=== PATIENT | female | born 1960 | race Caucasian/White ===

== ENCOUNTER 2022-11-02 13:38 | Outpatient (OUT) | payer OTHER, SELFPAY ==
--- NOTE | 2022-11-02 14:15 | MM_ITS ---
Patient: PATRICK PIEDRA Exam Date: 11/02/2022 : 1960 Gender:F Ordering : DR ARNALDO GONZALES Admission #: [id number] Family : Non-Staff Physician Order #: [id number] CLICK HERE TO VIEW EXAM RADIOLOGY REPORT PROCEDURE: MM TOMOSYNTHESIS SCREENING BI COMPARISON: MG MAMM SCREEN 3D PEDRO CAD, 10/15/2021. MG MAMM PEDRO DIAG W CAD DIG, 09/28/2020. MG MAMM SCREEN 3D PEDRO CAD, 09/09/2019. MG MAMM SCREEN 3D PEDRO CAD, 11/17/2017. INDICATIONS: Screening Calculator Name NCI Breast Cancer Risk Assessment Tool 5 Year Breast Cancer Risk 1.60% Lifetime Breast Cancer Risk 8.10% Personal Breast Cancer No Personal Ovarian Cancer No Treatments None Family Cancers Grandfather-maternal with lung cancer at age ~65. LOCATION: [facility] BREAST COMPOSITION: Scattered areas fibroglandular density. FINDINGS: DIAGNOSTIC CATEGORY 1--NEGATIVE. RIGHT BREAST: No significant suspicious finding. No significant change has occurred. LEFT BREAST: No significant suspicious finding. No significant change has occurred. RECOMMENDATIONS: ROUTINE MAMMOGRAM AND CLINICAL EVALUATION IN 12 MONTHS. PLEASE NOTE: A NORMAL MAMMOGRAM DOES NOT EXCLUDE THE POSSIBILITY OF BREAST CANCER. A CLINICALLY SUSPICIOUS PALPABLE LUMP SHOULD BE BIOPSIED. Dictated by: Rock Christopher M.D. on 11/03/2022 at 15:48 Approved by: Rock Christopher M.D. on 11/03/2022 at 15:51
== END 2022-11-02 13:39 | disposition home or self-care (01) ==
LOC: MAMMO 13:38
PROVIDERS: Family Provider Internal Medicine; Visit Provider Obstetrics & Gynecology
DX: Z12.31 Encounter for screening mammogram for malignant neoplasm of breast (principal); Z80.1 Family history of malignant neoplasm of trachea, bronchus and lung
CPT/HCPCS: 77063; 77067

== ENCOUNTER 2025-02-11 12:46 | Emergency (ER) | payer OTHER, SELFPAY ==
--- OUTSIDE RECORDS SUMMARY | 2025-01-31 06:30 | XMS_ITS | Encounter Summary ---
Author Organization [facility] Address [address] [place] [address] Care Team Providers Care Construction Coordinator Name Role Phone Chance Melton DO Primary Care Provider Neville Hyman DO Unavailable [phone] Adam Mahoney MD Unavailable Lan Dixon MD Unavailable Mauricio Chun MD Unavailable Encounter Details DateTypeDepartmentCare Team (Latest Contact Info)Xursnqwodzw32/31/2025 7:30 AM EDTAncillary Procedure [facility] SW [facility] [address] [place] [address] Renal stone Social History Tobacco UseTypesPacks/DayYears UsedDateSmoking Tobacco: Every DayCigarettes0.5 36.9Started: 04/03/1988Smokeless Tobacco: NeverAlcohol UseStandard Drinks/Week CommentsYes0 (1 standard drink = 0.6 oz pure alcohol)caffeine: coffee 3-4 cups a dayAUDIT-CAnswerDate RecordedQ1: How often do you have a drink containing alcohol?Never09/25/2024Q2: How many drinks containing alcohol do you have on a typical day when you are drinking?Patient does not drink09/25/2024Q3: How often do you have six or more drinks on one occasion?Never09/25/2024PHQ-2AnswerDate RecordedPatient Health Questionnaire-2 Bvhyi858CommentsNoSex and Gender InformationValueDate RecordedSex Assigned at BirthNot on fileLegal Sex Dmtugp8406/15/2022 7:09 PM EDTGender IdentityNot on fileSexual OrientationNot on fileOccupationIndustryJob Start DateJob End DatedisabledNot on fileNot on file Not on filedocumented as of this encounter Plan of Treatment DateTypeDepartmentCare Team (Latest Contact Info)Zqboykrebgl05/20/2025 9:30 AM ESTOffice Visit [facility] [address] [place] [phone] Caro Elias NP [address] [place] [address] 09/30/2025 11:00 AM EDTOffice Visit ELVIRA HALEY [address] [place] [phone] Neville Hyman DO [address] [place] [address] documented as of this encounter Procedures Procedure NamePriorityDate/TimeAssociated DiagnosisCommentsXR ABDOMEN 1 VIEW Zxjjuxj9701/31/2025 7:25 AM EDT Renal stone documented in this encounter Results * XR abdomen 1 view (01/31/2025 7:25 AM EDT)Anatomical RegionLateralityModality AbdomenRadiographic ImagingSpecimen (Source)Anatomical Location / Laterality Collection Method / VolumeCollection TimeReceived Time02/03/2025 12:43 PM EST Impressions 02/03/2025 2:26 PM EST Left ureteral stent, proximal ureteral stones. TRANSCRIBED BY: ? ELECTRONICALLY SIGNED BY: Sergei Macedo MD Narrative 02/03/2025 2:26 PM EST FINDINGS: Comparison made with prior examination of January 23, 2025. ?? No change, persistent left ureteral stent, proximal ureteral 3-5 stones. Obscured renal shadows. ?? Procedure Note Sergei Macedo MD - 02/03/2025 FINDINGS: Comparison made with prior examination of January 23, 2025. No change, persistent left ureteral stent, proximal ureteral 3-5 stones.Obscured renal shadows. IMPRESSION: Left ureteral stent, proximal ureteral stones. TRANSCRIBED BY: ELECTRONICALLY SIGNED BY: Sergei Macedo MD Authorizing ProviderResult TypeResult StatusJamaria d Rooney MDIMAugustine XR PROCEDURES Final Result documented in this encounter Visit Diagnoses Diagnosis Renal stone Calculus of kidney documented in this encounter Additional Health Concerns AssessmentNoted TimePHQ-9 Depression Total Score: 111 8:45 AM EDT documented as of this encounter Care Teams Team MemberRelationshipSpecialtyStart DateEnd Date Chance Melton DO [address] [place] [address] PCP - GeneralInternal Medicine10/19/22 Neville Hyman DO [address] [place] [address] Referring PhysicianObstetrics and Tewlfqwayi79/7/25 Adam Mahoney MD [address] [address] Referring VvavghjtcNmqaske13/22/25 Lan Dixon MD Referring DhrginuzdYxkchfg28/22/25 Mauricio Chun MD [address] [place] [address] Referring LsygpgspvLevdjerteziszoal88/22/25documented as of this encounter
[2025-02-11 12:52] VITALS: BP 163/88; PULSE 89; TEMP 36.8; O2SAT 98
--- NOTE | 2025-02-11 13:54 | CT_ITS ---
[address] [address] Patient Name: PATRICK PIEDRA MRN: [id number] date: 1960 Sex: F Assigned Patient Location: ER Current Patient Location: ER Accession/Order Number: [id number] Exam Date: 02/11/2025 14:04 Report Date: 02/11/2025 14:34 At the request of: HAL RUFFIN Procedure: CT abdomen pelvis wo con CT abdomen pelvis wo con 02/11/2025 2:13 PM SIGNS AND SYMPTOMS: Left sided kidney stone, uncontrolled pain TECHNIQUE: Multidetector ct axial images of the abdomen and pelvis were obtained without IV contrast. Multiplanar reformats were performed and reviewed to further define anatomy and possible pathology. CT was performed with one or more of the following dose reduction techniques: Automated exposure control, adjustment of the mA and/or kV according to patient size, or use of iterative reconstruction technique. COMPARISON: None. FINDINGS: Lower Chest: Mild airspace opacities are noted in the lung bases possibly representing atelectasis. ABDOMEN: Liver: The liver is hypoattenuating suggesting hepatic steatosis. Bile Ducts: Normal caliber. Gallbladder: Previously removed Pancreas: Within normal limits. Spleen: Within normal limits. Adrenals: Within normal limits. Kidneys: There is left-sided hydronephrosis. Presumed hemorrhagic cysts are noted along the left renal cortex measuring up to 1.5 cm in greatest dimension. The proximal aspect of a left ureteral stent appears to traverse the left renal pelvis with the tip extending into the perirenal fat. There is left-sided hydronephrosis. Pelvis: Reproductive Organs: No pelvic masses. Ureters: A left ureteral stent is present. Multiple tiny radiodense structures are noted along the left ureter adjacent to the stent suggesting ureteral stones. There is fat stranding surrounding the left ureter. Bladder: The distal aspect of the left ureteral stent is within the bladder lumen. Bowel: There is evidence of previous partial colectomy with surgical anastomosis at the rectosigmoid junction. Nonobstructing loops of small bowel project into a ventral wall hernia. Mesenteric Lymph Nodes: No enlarged mesenteric lymph nodes. Peritoneum: No ascites or free air, no fluid collection. Vessels: Atherosclerotic changes are noted in the abdominal aorta and its branches. Retroperitoneum: Within normal limits. Abdominal Wall: There is a ventral wall hernia containing intraperitoneal fat. Umbilical region along with nonobstructed loops of small bowel. Bones: Degenerative changes are noted in the sacroiliac joints and lumbar spine. CT/CT abdomen pelvis wo con IMPRESSION: Left-sided hydronephrosis is noted. There is a left ureteral stent. The proximal aspect of the stent appears to extend through the renal pelvis into the perirenal fat. Radiodense structures are noted along the left ureter adjacent to the ureteral stent suggesting ureteral stones. There is a ventral wall hernia containing intraperitoneal fat and nonobstructed loops of small bowel in the periumbilical region. Hepatic steatosis. Impression dictated by: Bj Mcclain M.D. 02/11/2025 2:34 PM Dictation Location: [place] [address] Electronically authenticated by: [id number] Y Date: 02/11/2025 14:34
--- OUTSIDE RECORDS SUMMARY | 2025-02-11 13:56 | XMS_ITS | Encounter Summary ---
Author Organization [facility] Address [address] [facility] [place] [address] Care Team Providers Care Editor Department Name Role Phone VenancioChance saeed Oriana FRANCO Primary Care Provider Neville Hyman DO Unavailable [phone] Adam Mahoney MD Unavailable [phone] Lan Dixon MD Unavailable [phone] Mauricio Chun MD Unavailable [phone] Encounter Details DateTypeDepartmentCare Team (Latest Contact Info)Ndntxibgaju44/29/2025ommunity Orders [facility]P SW [facility]RO [address] [place] [address] Kristin Rooney MD [address] [id number] Renal stone (Primary Dx) Social History Tobacco UseTypesPacks/DayYears UsedDateSmoking Tobacco: Every [...] drinks on one occasion?Never09/25/2024PHQ-2AnswerDate RecordedPatient Health Questionnaire-2 Ojqfs535CommentsNoSex and Gender InformationValueDate RecordedSex Assigned at BirthNot on fileLegal Sex Iljbhm0306/15/2022 7:09 PM EDTGender IdentityNot on fileSexual OrientationNot on fileOccupationIndustryJob Start DateJob End DatedisabledNot on fileNot on file Not on filedocumented as of this encounter Plan of Treatment DateTypeDepartmentCare Team (Latest Contact Info)Ioeezceepay61/20/2025 9:30 AM ESTOffice Visit [facility] [address] [place] [phone] Caro Elias NP [address] [place] [address] 09/30/2025 11:00 AM EDTOffice Visit ELVIRA HALEY [address] [place] [phone] Neville Hyman DO [address] [place], [place] [phone] documented as of this encounter Results * XR abdomen 1 [...] BY: Sergei Macedo MD Authorizing ProviderResult TypeResult StatusKristin MARSH XR PROCEDURES Final Result documented in this encounter Visit Diagnoses Diagnosis Renal stone- Primary Calculus of kidney Renal stone Calculus of kidney documented in this encounter Additional Health Concerns AssessmentNoted TimePHQ-9 Depression Total Score: 111 8:45 AM EDT documented as of this encounter Care Teams Team MemberRelationshipSpecialtyStart DateEnd Date Chance Melton DO [address] [place] [address] PCP - GeneralInternal Medicine10/19/22 Neville Hyman DO [address] [place] [address] Referring PhysicianObstetrics and Nfdphfulzh04/7/25 Adam Mahoney MD [address] [address] Referring YfzecneafHamzakz26/22/25 Lan Dixon MD Referring QvrdezpiqCeueuax44/22/25 Mauricio Chun MD [address] [place] [address] Referring EzbigdaywRqmfmujjamvbwtte98/22/25documented as of this encounter
--- OUTSIDE RECORDS SUMMARY | 2025-02-11 13:56 | XMS_ITS | Clinical Summary ---
Author Organization [facility] Address [address], [address] [place] [address] Care Team Providers Care Premix Operator Concentrate Name Role Phone Chance Melton DO Primary Care Provider [phone] Allergies Active AllergyReactionsCriticalityNoted DateCommentsCyclobenzaprineItching,Rash High07/12/2017TizanidineItching,EmfhLni7401/19/2022 rash Medications MedicationSigDispense QuantityRefillsLast FilledStart DateEnd DateStatus triamterene-hydroCHLOROthiazide (MAXZIDE-25) 37.5-25 MG per tablet Take 1 tablet by mouth daily01/14/2023ctive estradiol (ESTRACE) 0.5 MG tablet Take 1 tablet by mouth in the morning and 1 tablet in the evening.01/02/2023 Active DULoxetine (CYMBALTA) 60 MG extended release capsule Take 1 capsule by mouth 2 times daily11/19/2018Active carvedilol (COREG) 25 MG tablet Take 1 tablet by mouth 2 times daily (with meals)Active Cholecalciferol (VITAMIN D3) 125 MCG (5000 UT) TABS Take by mouth dailyActive busPIRone (BUSPAR) 7.5 MG tablet 12/05/2023ctive ondansetron (ZOFRAN-ODT) 4 MG disintegrating tablet Take 1 tablet by mouth 3 times daily as needed for Nausea or Vomiting 21 tablet 02/16/2024ctive ondansetron (ZOFRAN) 4 MG tablet Take 1 tablet by mouth every 8 hours as needed for Nausea or Vomiting 30 tablet 03/22/2024ctive Active Problems ProblemNoted DateDiagnosed DateColostomy /11/2024olostomy vxkcuyuezesk90/06/2024Mild /25/2024Left upper quadrant abdominal bhhijxw2908/26/2023Ischemic drhngco9708/25/2023Intra-abdominal msvzlyz3608/24/2023S/P susjiogec66/19/7538Vqgnetedsvo52/19/2024Slow transit rzmmughxuske85/12/2024 Mmzaguchgzqoyx33/03/2024Hyperplastic colonic polyp03/08/20233383Vvjrftvy87/16/2023 Abdominal pain01/16/2023Hyperplastic polyp of kaukmfvno94/16/2023 Resolved Problems ProblemNoted DateDiagnosed DateResolved DateColon cancer ngofuhoas80/13/2024 12/14/2023nastomotic leak of cndenkbmv72 Family History Medical HistoryRelationNameCommentsHeart DiseaseFatherKidney DiseaseFatherHigh Blood PressureMotherColon CancerNeg HxRelationNameStatusCommentsFatherDeceased MotherAlive Social History Tobacco UseTypesPacks/DayYears UsedDateSmoking Tobacco: Every DayCigarettes0.530 Smokeless Tobacco: Never Tobacco Cessation:Ready to Q uit: Not Asked; Counseling Given: Not Answered Comments:Down to 3 a day sometimes Alcohol UseStandard Drinks/WeekCommentsYes0 (1 standard drink = 0.6 oz pure alcohol)sociallyAHC UtilitiesAnswerDate RecordedIn the past 12 months has the [employer], [employer], [employer], or water [employer] threatened to shut off services in your home?No02/12/2024UDIT-CAnswerDate RecordedQ1: How often do you have a drink containing alcohol?Monthly or less08/24/2023Q2: How many drinks containing alcohol do you have on a typical day when you are drinking?1 or Q3: How often do you have six or more drinks on one occasion?Never08/24/2023HQ-2 AnswerDate RecordedPHQ-9 Total Yixex418Hunger Vital SignAnswerDate RecordedWithin the past 12 months, you worried that your food would run out before you got the money to buymore.Never true02/12/2024Within the past 12 months, the food you bought just didn't last and you didn't have money to get more.Never true02/12/2024RAPARE - TransportationAnswerDate RecordedIn the past 12 months, has lack of transportation kept you from medical appointments or from getting medications?No02/12/2024In the past 12 months, has lack of transportation kept you from meetings, work, or from getting things needed for daily living?No02/12/2024Housing Stability Vital SignAnswerDate RecordedIn the last 12 months, was there a time when you were not able to pay the mortgage or rent on time?No08/24/2023In the last 12 months, how many places have you lived?1 08/24/2023In the last 12 months, was there a time when you did not have a steady place to sleep or slept in [place] (including now)?No08/24/2023Housing Stability Vital SignAnswerDate RecordedIn the last 12 months, was there a time when you were not able to pay the mortgage or rent on time?No02/12/2024In the past 12 months, how many times have you moved where you were living? At any time in the past 12 months, were you homeless or living in a penitentiary (including now)?No02/12/2024Food InsecurityAnswerDate RecordedWithin the past 12 months, you worried that your food would run out before you got the money to buy more.Within the past 12 months, the food you bought just didn't last and you didn't have money to get more.Interpersonal Safety Domain Source: IP Abuse ScreeningAnswerDate RecordedPhysical lqasfSqzpfe74/11/2024 Verbal ujbsvSeytot69/11/2024Emotional opqfqAdypnu45/11/2024Financial abuseDenies 02/12/2024Sexual udquvLddlht13/11/2024CommentsNoSex and Gender InformationValueDate RecordedSex Assigned at BirthNot on fileLegal SexFemale 05/15/2012 3:04 AM ESTGender IdentityNot on fileSexual OrientationNot on file Last Filed Vital Signs Vital SignReadingTime TakenCommentsBlood Zmiscoza618/5911 1:03 PM EST Meapq5374/31/2025 9:47 AM GWGNrrshpbxggw50.7 ??C (98 ??F)05/03/2024 9:47 AM EST Respiratory Wovy695704/17/2023 1:03 PM ESTOxygen Mwmsyudakg90%05/03/2024 9:47 AM ESTInhaled Oxygen Concentration--Fqkaln25.6 kg (180 lb)05/03/2024 9:47 AM EST Rikmgg783.5 cm (5' 2 )05/03/2024 9:47 AM ESTBody Mass Index32.9205/03/2024 9:47 AM EST Plan of Treatment Health MaintenanceDue DateLast DoneCommentsHIV fqwzbz0710/20/1977Hepatitis C gsvvpi2410/20/1980DTaP/Tdap/Td vaccine (1 - Tdap)1981Pneumococcal 50+ years Vaccine (1 of 2 - PCV)1981Diabetes dmvpub1810/20/19976864Pvftiz16/20/2003 FIT/FOBT: Average risk10/21/2007Fecal-DNA (Cologuard): Average risk10/21/2007 Sigmoidoscopy/CT ugtcbqfdkcuq17/20/2008Shingles vaccine (1 of 2)2012reast cancer /, 09/28/2020, 09/09/2019, Additional history existsDepression Qcxznw957/Flu vaccine (#1)5COVID-19 Vaccine (3 - season)2/, 1Colonoscopy /, 11/29/2023, 04/05/2023, Additional history exists Colorectal Cancer Xqftae7411/28/2033espiratory Syncytial Virus (RSV) or age 60 yrs+ (1 - 1-dose 75+ series)2037Hepatitis A vaccineAged OutNo longer eligible based on patient's age to complete this topicHepatitis B vaccine Aged OutNo longer eligible based on patient's age to complete this topicHib vaccineAged OutNo longer eligible based on patient's age to complete this topic Meningococcal (ACWY) vaccineAged OutNo longer eligible based on patient's age to complete this topicMeningococcal B vaccineAged OutNo longer eligible based on patient's age to complete this topicPolio vaccineAged OutNo longer eligible based on patient's age to complete this topic Procedures Procedure NamePriorityDate/TimeAssociated DiagnosisCommentsCOLONOSCOPY PROCEDURE Csoighk3611/29/2023 7:23 AM EDT from Last 3 Months or Most Recently Relevant to Health Maintenance Results * Colonoscopy (11/29/2023 7:23 AM EDT)Specimen (Source)Anatomical Location / LateralityCollection Method / VolumeCollection TimeReceived Time11/29/2023 7:23 AM EDT Narrative [facility] M[facility] - 11/29/2023 7:23 AM EDT [facility] Patient: PATRICK COX : 1960 Account: [id number] Sex at : Female Age: 63 Years Procedure: Colonoscopy Date: 11/29/2023 Attending Physician: Osman Garcias Indications: ? - ??Screening for colorectal malignant neoplasm Medications: ? - ??See the Anesthesia note for documentation of the administered medications Complications: ? - ??No immediate complications. Estimated Blood Loss: ? - ??Estimated blood loss: None. Procedure: ? - The scope was introduced through the descending colostomy and advanced to ?the cecum, identified by appendiceal orifice and ileocecal valve. ? - ??The colonoscopy was performed without difficulty. ? - ??The quality of the bowel preparation was excellent. ? - ??The ileocecal valve, appendiceal orifice, and rectum were photographed. Findings: ? - ??The colon (entire examined portion) appeared normal. Impression: ? - ??The entire examined colon is normal. ? - ??No specimens collected. Procedure Code(s): ? - 86565, Colonoscopy through stoma; diagnostic, including collection of ?specimen(s) by brushing or washing, when performed (separate procedure) Diagnosis Code(s): ? - Z12.11, Encounter for screening for malignant neoplasm of colon ?CPT(R) - 2022 copyright [employer]. All Rights Reserved. ?The CPT codes, CCI edits and ICD codes generated are intended as suggestions ?and were generated based on input data. ??These codes are preliminary and upon ?insulation mechanic review may be revised to meet current compliance and payer requirements. ?The provider is responsible for the final determination of appropriate codes, ?and modifiers. Scope Withdrawal Time: ? 00:00:46 Osman Garcias MD This document has been electronically signed. Note Initiated:11/29/2023 Note Completed:11/29/2023 8:00 AM Procedure Note Osman Garcias MD - 11/29/2023 [facility] Patient: PATRICK COX : 1960 Account: [id number] Sex at : Female Age: 63 Years Procedure: Colonoscopy Date: 11/29/2023 Attending Physician: Osman Garcias Indications: - Screening for colorectal malignant neoplasm Medications: - See the Anesthesia note for documentation of the administeredmedications Complications: - No immediate complications. Estimated Blood Loss: - Estimated blood loss: None. Procedure: - The scope was introduced through the descending colostomy andadvanced to the cecum, identified by appendiceal orifice and ileocecalvalve. - The colonoscopy was performed without difficulty. - The quality of the bowel preparation was excellent. - The ileocecal valve, appendiceal orifice, and rectum werephotographed. Findings: - The colon (entire examined portion) appeared normal. Impression: - The entire examined colon is normal. - No specimens collected. Procedure Code(s): - 07551, Colonoscopy through stoma; diagnostic, includingcollection of specimen(s) by brushing or washing, when performed (separateprocedure) Diagnosis Code(s): - Z12.11, Encounter for screening for malignant neoplasm of colon CPT(R) - 2022 copyright [employer]. All RightsReserved. The CPT codes, CCI edits and ICD codes generated are intended assuggestions and were generated based on input data. These codes are preliminaryand upon insulation mechanic review may be revised to meet current compliance and payerrequirements. The provider is responsible for the final determination ofappropriate codes, and modifiers. Scope Withdrawal Time: 00:00:46 Osman Garcias MD This document has been electronically signed. Note Initiated:11/29/2023 Note Completed:11/29/2023 8:00 AM Authorizing ProviderResult TypeResult StatusTimthu Garcias MDENDOSCOPY ORDERABLESFinal ResultPerforming OrganizationAddressCity/State/ZIP CodePhone Number [facility] MUSE from Last 3 Months or Most Recently Relevant to [place] [address] Advance Directives * Full Code (Latest Code Status on File) Date ActivatedDate WdvjrzaayfmXzhqbpvk17/11/2024 8:36 AM02/16/2024 6:46 PM * Full Code Date ActivatedDate InactivatedComments11/29/2023 5:59 AM11/29/2023 10:53 AM * Full Code Date ActivatedDate InactivatedComments08/24/2023 2:11 AM09/01/2023 2:30 PM * Full Code Date ActivatedDate InactivatedComments07/13/2023 6:23 AM4 8:07 PM * Full Code Date ActivatedDate InactivatedComments04/05/2023 10:03 AM04/05/2023 2:53 PM NameRelationshipHealthcare Agent RelationshipCommunicationKen HoyOtherPrimary Decision Maker* Care Teams Team MemberRelationshipSpecialtyStart DateEnd Date Chance Melton DO Formerly named [facility] [address] [address] PCP - GeneralInternal Tzdvurjn98/16/23
--- OUTSIDE RECORDS SUMMARY | 2025-02-11 13:56 | XMS_ITS | Clinical Summary ---
Author Organization [facility] Address [address] [place] [address] Phone Care Team Providers Care Non Morse Intercept Technician Name Role Phone Sergio Urena MD Primary Care Provider [phone] Chitra Lynn APRN-GRINDER SET UP OPERATOR INTERNAL Unavailable Unavai lable Allergies Active AllergyReactionsCriticalityNoted DateCommentsCyclobenzaprineItching,Rash High05/29/2023 Medications MedicationSigDispense QuantityRefillsLast FilledStart DateEnd DateStatus oxybutynin XL (Ditropan-XL) 10 mg 24 hr tablet Take 1 tablet (10 mg) by mouth once daily. Do not crush, chew, or split.Active hydrOXYzine pamoate (Vistaril) 25 mg capsule Take 1 capsule (25 mg) by mouth 2 times a day.Active carvedilol (Coreg) 25 mg tablet Take 1 tablet (25 mg) by mouth 2 times a day with meals.Active losartan (Cozaar) 50 mg tablet Take 1 tablet (50 mg) by mouth once daily.Active estradiol (Estrace) 0.5 mg tablet Take 1 tablet (0.5 mg) by mouth 2 times a day.Active DULoxetine (Cymbalta) [address] capsule Take 1 capsule (60 mg) by mouth 2 times a day. Do not crush or chew.Active busPIRone (Buspar) 7.5 mg tablet Take 1 tablet (7.5 mg) by mouth 2 times a day.Active triamterene-hydrochlorothiazid (Dyazide) 37.5-25 mg capsule Take 1 capsule by mouth once daily in the morning.Active Active Problems No known active problems Encounters DateTypeDepartmentCare NfkyUtkoyzhjdch97/08/2025Orders Only [facility] [address] [place] [address] Mauricio Chun MD from Last 3 Months Social History Tobacco UseTypesPacks/DayYears UsedDateSmoking Tobacco: Every DayCigarettes0.525 Smokeless Tobacco: Never Tobacco Cessation:Ready to Q uit: Not Asked; Counseling Given: Not Answered Alcohol UseStandard Drinks/WeekCommentsNot Asked0 (1 standard drink = 0.6 oz pure alcohol)SELDOMCommentsUnknownSex and Gender InformationValueDate RecordedSex Assigned at BirthNot on fileLegal YjaHpkysq46/26/2022 7:54 AM EST Gender IdentityNot on fileSexual LdtgckemobqBojtjvom40/26/2024 10:05 AM EST Last Filed Vital Signs Vital SignReadingTime TakenCommentsBlood Vzhrtuwp781/68005/29/2023 2:10 PM EST Qxaox693905/29/2023 2:10 PM HYZFnqqaqckrpi44.3 ??C (97.3 ??F)05/29/2023 2:10 PM ESTRespiratory Godh950005/29/2023 2:10 PM ESTOxygen Okvyzzmjkv94%05/29/2023 2:10 PM ESTInhaled Oxygen Concentration--Mbthgg32.2 kg (190 lb)05/29/2023 10:34 AM BKLVffsgn575 cm (5' 3 )05/29/2023 10:34 AM ESTBody Mass Index33.66005/29/2023 10:34 AM EST Plan of Treatment Health MaintenanceDue DateLast DoneCommentsCT Jcatlpdofyfa59/20/1963FIT-DNA (Cologuard)1962FIT1962HIV Shreilajt57/20/1963Lipid Panel1962 Zpyoasuefvcdn04/20/1963MMR Vaccines (1 of 1 - Standard series)10/21/1963Diabetes Odowqrwht76/20/1981Hepatitis C Nidkjwkgb56/20/1981Hepatitis A Vaccines (1 of 2 - Risk 2-dose series)1981Pneumococcal Vaccine (1 of 2 - PCV)1981 Cervical Cancer Msbxaqgio82/20/1984HPV/Ehygqp9910/21/1983Pap Smear10/21/1983 DTaP/Tdap/Td Vaccines (1 - Tdap)1984RSV High Risk: (Elderly (60+) or Population) (1 - Risk 50-74 years 1-dose series)2012Zoster Vaccines (1 of 2)10/20/20128755Uokfwprew82/15/202307/, 09/28/2020, 09/09/2019, Additional history existsHepatitis B Vaccines (1 of 3 - Risk 3-dose series)2022Influenza Vaccine (#1)5COVID-19 Vaccine (3 - season), 10/15/2020Yearly Adult Krapgrvx43/26/2026 09/25/2024, 07/24/2024, 2957Bjpoomtfocf05/25/35733605/29/2023, 04/05/2023, 4Colorectal Cancer Nkndzuqvx95/25/2027Irritable Bowel Syndrome Kbvmgtuypatn10/26/2024HIB VaccinesAged OutNo longer eligible based on patient's age to complete this topicHPV VaccinesAged OutNo longer eligible based on patient's age to complete this topicIPV VaccinesAged OutNo longer eligible based on patient's age to complete this topicMeningococcal VaccineAged OutNo longer eligible based on patient's age to complete this topicRotavirus VaccinesAged Out No longer eligible based on patient's age to complete this topic Procedures Procedure NamePriorityDate/TimeAssociated DiagnosisCommentsCT ABDOMEN PELVIS W AND WO IV IPXNLYHW29/08/2025 2:45 PM EDT SGTYYRYBUSTDitmxkq24/26/2024 1:02 PM EST Tortuous colon Sigmoid stricture (Multi) from Last 3 Months or Most Recently Relevant to Health Maintenance Results * CT abdomen pelvis w and wo IV contrast (12/09/2024 2:45 PM EDT)Anatomical RegionLateralityModalityAbdominal, BodyComputed TomographySpecimen (Source) Anatomical Location / LateralityCollection Method / VolumeCollection Time Received Time12/09/2024 2:45 PM EDT Narrative 12/09/2024 2:[address] ABDOMEN AND PELVIS WITHOUT AND WITH IV CONTRAST TECHNIQUE: ??Axial images were taken through the abdomen and pelvis both before and after the administration of IV contrast. Enteric contrast also administered. All CT scans at this facility use dosemodulation, iterative reconstruction, and/or weight based dosing when appropriate to reduce radiation dose to as low as reasonably achievable HISTORY: PAIN COMPARISON: ??None FINDINGS: Lower chest: Atelectatic changes noted at the bilateral lung bases. ??The visualized cardiac and posterior mediastinal structures are unremarkable. ABDOMEN: The liver appears diffusely low in density compatible with fatty infiltration. There is no evidencefor mass or intrahepatic biliary ductal dilatation. ?? The gallbladder has been been surgically removed. ?? The adrenal glands, pancreas and spleen are normal. ?? There is a dominant 7 x 8 mm stone at the left UPJ on image 58 causing moderate left-sided hydronephrosis. No evidence of right-sided hydronephrosis or ureterolithiasis. There is a punctate 2 mm nonobstructing upper pole left kidney stone on image 34. There is a 2nd 2 mm nonobstructing mid left kidney stone on image 53. No other evidence of nephrolithiasis on either side. There is a midline ventral hernia above the umbilicus. The neck of the hernia measures approximately 5.7 x 6.2 cm in dimension. This contains a couple of loops of small bowel without evidence of incarceration or obstruction. The patient is status post subtotal colectomy. Colonic anastomosis noted in the pelvis. The large and small bowel of the abdomen and pelvis are otherwise unremarkable. The aorta is normal in caliber. There is no evidence for pathologically enlarged adenopathy. PELVIS: The bladder appears unremarkable. There is no intrapelvic free air or free fluid. ??The uterus is not visualized compatible with previous hysterectomy. No acute soft tissue abnormality is identified. No acute osseous abnormality is seen. IMPRESSION: There is a 7 x 8 mm stone at the left UPJ causing moderate left-sided hydronephrosis. Additional punctate 2 mm nonobstructing left kidney stones are also present. There are postsurgical changes from subtotal colectomy with colonic anastomosis in the pelvis. No postoperative complication identified. Fatty infiltration of the liver. Status post cholecystectomy and hysterectomy. Midline ventral hernia above the umbilicus without evidence of bowel incarceration or obstruction. Electronically signed by: ??Jhonatan Aguilar MD ??12/09/2024 02:43 PM EDT RP Authorizing ProviderResult TypeResult StatusNewtnoe Chun MDIMAugustine CT PROCEDURESFinal Result * Colonoscopy Diagnostic (05/29/2023 1:02 PM EST)Anatomical RegionLaterality ModalityEndoscopySpecimen (Source)Anatomical Location / LateralityCollection Method / VolumeCollection TimeReceived Time Narrative 05/29/2023 1:09 PM EST Table formatting from the original result was not included. Impression Two polyps measuring from 7 mm up to 10 mm; performed cold snare removal; placed 1 clip successfully. 2 subcentimeter polyps in the transverse colon were removed with cold snare. One 12 mm polyp in the transverse colon; lift performed; performed cold snare removal. Scattered diverticulosis, with fixed and tortuous sigmoid colon. Findings Two sessile polyps measuring from 7 mm up to 10 mm; performed cold snare removal; placed 1 clip successfully (clip is MRI compatible). Two sessile polyps measuring 5-9 mm in the transverse colon; performed cold snare removal. One 12 mm sessile polyp in the transverse colon; lift performed by injecting a solution into the submucosa; performed cold snare removal. Multiple scattered pancolonic diverticula. Fixed and tortuous sigmoid colon. . Recommendation Await pathology results Repeat colonoscopy in 3 years - Patient has a contact number available for ??emergencies. The signs and symptoms of potential delayed complications were discussed with the patient. Return to normal activities tomorrow. Written discharge instructions were provided to the patient. - Resume previous diet. - Continue present medications. - The findings and recommendations were discussed with the patient. Indication Sigmoid stricture (CMS/HCC), Tortuous colon Staff Staff Role No Staff Documented Medications See Anesthesia Record. Preprocedure A history and physical has been performed, and patient medication allergies have been reviewed. The patient's tolerance of previous anesthesia has been reviewed. The risks and benefits of the procedure and the sedation options and risks were discussed with the patient. All questions were answered and informed consent obtained. Details of the Procedure The patient underwent monitored anesthesia care, which was administered by an anesthesia professional. The patient's blood pressure, ECG, ETCO2, heart rate, level of consciousness, oxygen and respirations were monitored throughout the procedure. A digital rectal exam was performed. The scope was introduced through the anus and advanced to the cecum. Retroflexion was performed in the rectum. The quality of bowel preparation was evaluated using the Ridge Bowel Preparation Scale with scores of: right colon = 3, transverse colon = 3, left colon = 3. The total BBPS score was 9. Bowel prep was adequate. The patient experienced no blood loss. The procedure was not difficult. The patient tolerated the procedure well. There were no apparent adverse events. Events Procedure Events Event Event Time ENDO SCOPE IN TIME 05/29/2023 12:25 PM ENDO CECUM REACHED 05/29/2023 12:38 PM ENDO SCOPE OUT TIME 05/29/2023 12:57 PM Specimens ID Type Source Tests Collected by Time 1 : x2 Tissue COLON -CECUM POLYP SURGICAL PATHOLOGY EXAM Lashon Magallanes 05/29/2023 1240 2 : x3 Tissue COLON - TRANSVERSE POLYP SURGICAL PATHOLOGY EXAM Lashon Magallanes 05/29/2023 1247 Procedure Location [facility] [address] [facility] [address] Referring Provider CRESCENCIO Bennett [address] [facility] [place] [address] Procedure Provider Caro Reardon MD Authorizing ProviderResult TypeResult StatusJennadriana Lynn BAR TENDER-CNPENDOSCOPY PROCEDURE ORDERABLESFinal Result from Last 3 Months or Most Recently Relevant to Health Maintenance Insurance Care Teams Team MemberRelationshipSpecialtyStart DateEnd Date Sergio Urena MD [address] [place], [place] [id number] PCP - General05/03/17 Chitra Lynn, BAR TENDER-GRINDER SET UP OPERATOR INTERNAL [address] [place] [address] Referring PhysicianGastroenterology06/13/23
--- OUTSIDE RECORDS SUMMARY | 2025-02-11 13:56 | XMS_ITS | Clinical Summary ---
Author Organization [facility] Address [address] [place] [address] Care Team Providers Care Gear Technician Name Role Phone Jayden De Leon Primary Care Provider [phone] Chance Melton DO Unavailable [phone] Allergies Active AllergyReactionsCriticalityNoted DateCommentsCyclobenzaprineRash,Itching 07/12/2017Oxycodone-VvovepheeokrlYadv98/11/2018 Medications MedicationSigDispense QuantityRefillsLast FilledStart DateEnd DateStatus triamterene-hydrochlorothiazide (MAXZIDE-25) 37.5-25 mg per tablet 07/04/2017Active traZODone (DESYREL) 100 mg tablet 07/04/2017Active venlafaxine ER (EFFEXOR XR) 150 mg 24 hr capsule 07/04/2017Active baclofen (LIORESAL) 10 mg tablet 04/22/2017Active Estradiol (ESTRACE) 0.5 mg tablet 07/07/2017Active Amphetamine-Dextroamphetamine 25 mg 24 hr capsule Active ALPRAZolam (XANAX) 0.5 mg tablet Active ondansetron (ZOFRAN) 4 mg tablet Take 4 mg by mouth every 8 hours as needed.Active GUAIFENESIN/DEXTROMETHORPHAN (MUCINEX DM ORAL) Take by mouth.Active semaglutide (OZEMPIC) 0.25 mg or 0.5 mg(2 mg/1.5 mL) pen Inject 0.25 mg subcutaneously.03/04/2022ctive traMADol (ULTRAM) 50 mg tablet Take by mouth.03/04/2022ctive carvedilol (COREG) 25 mg tablet 06/18/2022ctive losartan (COZAAR) 50 mg tablet 06/16/2022ctive DULoxetine (CYMBALTA) 60 mg capsule 06/16/2022ctive predniSONE (DELTASONE) 20 mg tablet 05/23/2022ctive Active Problems ProblemNoted DateDiagnosed DateArthropathy of spinal facet joint07/23/2017 Myofascial pain07/23/2017Neuropathic pain07/23/2017TOS (thoracic outlet syndrome)07/23/2017Cervical post-laminectomy duxlxtqn48/22/2018Chronic pain associated with significant psychosocial igbjjefwbtr22/22/2018S/P shoulder rhbgflh7307/23/2017 Social History Tobacco UseTypesPacks/DayYears UsedDateSmoking Tobacco: Every DayCigarettes Smokeless Tobacco: Never Tobacco Cessation:Ready to Q uit: Yes; Counseling Given: Yes PHQ-2AnswerDate RecordedPHQ-2 fubge88707/12/2017Area Deprivation IndexAnswerDate RecordedNational Score (1-100), lower number is lower riskNot on file03/10/2020 State Score (1-10), lower number is lower riskNot on file03/10/2020Data from: https://www.neighborhoodatlas.medicine.[facility].edu/. Last address used for calculationNot on file03/10/2020CommentsUnknownSex and Gender InformationValueDate RecordedSex Assigned at BirthNot on fileLegal SexFemale 06/20/2017 8:38 AM EDTGender IdentityNot on fileSexual OrientationNot on file Last Filed Vital Signs Vital SignReadingTime TakenCommentsBlood Yoydyclg242/7303 9:38 AM EDT Xezjb951106/30/2022 9:38 AM EDTTemperature--Respiratory Eepb487807/30/2020 10:16 AM EDTOxygen Bslynqlrrn90%06/30/2022 9:38 AM EDTInhaled Oxygen Concentration-- Zkqsda18.1 kg (170 lb)06/30/2022 9:38 AM JGHOhscgn482.6 cm (5' 4 )06/30/2022 9:38 AM EDTBody Mass Index29.18006/30/2022 9:38 AM EDT Plan of Treatment Health MaintenanceDue DateLast DoneCommentsAnxiety Xuzwnwpyo46/20/1981Depression Piwhvbrub49/20/1981HIV Ciaaznjav88/20/1981Hepatitis C Rroeofykv26/20/1981 DTaP,Tdap,Td Vaccine (1 - Tdap)1981Pneumococcal Vaccine: 50+ (1 of 2 - PCV)1981Cervical Cancer Gdfotnrvt55/20/1984CT Ydkzcasyqoep00/20/2008 Cologuard (FIT-DNA)10/21/2007Fecal Occult Blood10/21/2007Lipid Screening 10/21/20079752Qnsxrqoxntxvp36/20/2008Shingrix Vaccine (1 of 2)2012Colonoscopy 502/, 04/05/2023, 02/22/2023, Additional history exists Colorectal Cancer Fbzxbgrrq76/26/2025ovid-19 Vaccine ( - season) /, 10/15/2020Influenza Vaccine (#1)2024Mammogram Xhljaqjyh72/18/837895/, 09/18/2024, 10/15/2021, Additional history exists Diabetes Eaxqzuplz35/02/901259/05/2024, 02/15/2024, 02/13/2024, Additional history existsRSV Vaccine (1 - 1-dose 75+ series)2037 Insurance Care Teams Team MemberRelationshipSpecialtyStart DateEnd Date Jayden De Leon [address] [place] [address] PCP - GeneralFamily Medicine06/20/17 Chance Melton DO [address] [place] [address] PhysicianInternal Medicine07/16/20
--- OUTSIDE RECORDS SUMMARY | 2025-02-11 13:56 | XMS_ITS | Encounter Summary ---
Author Organization [facility] Address [address] [place] [address] Care Team Providers Care Nail Assembly Machine Operator Name Role Phone VenancioChance aseed Oriana FRANCO Primary Care Provider Neville Hyman DO Unavailable [phone] Adam Mahoney MD Unavailable Lan Dixon MD Unavailable [phone] Mauricio Chun MD Unavailable [phone] Encounter Details DateTypeDepartmentCare Team (Latest Contact Info)Pjxqbodorfg13/06/2025Community Orders [facility] [address] [place] [address] Kristin Rooney MD [address] [phone] Kidney stone (Primary Dx) Social History Tobacco UseTypesPacks/DayYears [...] drinks on one occasion?Never09/25/2024PHQ-2AnswerDate RecordedPatient Health Questionnaire-2 Knufw637CommentsNoSex and Gender InformationValueDate RecordedSex Assigned at BirthNot on fileLegal Sex Adjpqj5906/15/2022 7:09 PM EDTGender IdentityNot on fileSexual OrientationNot on fileOccupationIndustryJob Start DateJob End DatedisabledNot on fileNot on file Not on filedocumented as of this encounter Plan of Treatment DateTypeDepartmentCare Team (Latest Contact Info)Qdynmypqowd96/20/2025 9:30 AM ESTOffice Visit [facility] [address] [place] [phone] Caro Elias, MARIANO [address] [place] [address] 09/30/2025 11:00 AM EDTOffice Visit [facility] [address] [place] [phone] Neville Hyman DO [address] [place] [address] documented as of this encounter Visit Diagnoses Diagnosis Kidney stone- Primary Calculus of kidney documented in this encounter Additional Health Concerns AssessmentNoted TimePHQ-9 Depression Total Score: 111 8:45 AM EDT documented as of this encounter Care Teams Team MemberRelationshipSpecialtyStart DateEnd Date Chance Melton DO [address] [place] [address] PCP - GeneralInternal Medicine10/19/22 Neville Hyman DO [address] [place] [address] Referring PhysicianObstetrics and Imazkumexz78/7/25 Adam Mahoney MD [address] [address] Referring RmwjpbnslCvkfalk91/22/25 Lan Dixon MD Referring LfaipumqsZbtzmyk56/22/25 Mauricio Chun MD [address] [place] [address] Referring ZpxweuausWnetaslyfpqavxnl49/22/25documented as of this encounter
--- OUTSIDE RECORDS SUMMARY | 2025-02-11 13:56 | XMS_ITS | Clinical Summary ---
Author Organization [facility] Address [address] [place] [address] Care Team Providers Care Car Wiper Name Role Phone Chance Melton DO Primary Care Provider Neville Hyman DO Unavailable Adam Mahoney MD Unavailable [phone] Lan Dixon MD Unavailable Mauricio Chun MD Unavailable [phone] Allergies Active AllergyReactionsCriticalityNoted DateCommentsCyclobenzaprineItching,Rash Low07/12/20176601GfvgfAwr01/09/9534ZyofujshnrGmg06/24/2023Tizanidine HclLow 2022 Other Reaction(s): Unknown NslezpwhopKkr32/20/2023 Other Reaction(s): vomitting Medications MedicationSigDispense QuantityRefillsLast FilledStart DateEnd DateStatus cholecalciferol (Vitamin D-3) 125 MCG (5000 UT) capsule Take by mouth Daily.Active triamterene-hydrochlorothiazide (Maxzide-25) 37.5-25 MG tablet Indications:Essential hypertension, benignTAKE 1 TABLET BY MOUTH IN THE MORNING 30 tablet 5Active busPIRone (Buspar) 7.5 MG tablet Indications:Anxiety disorder, unspecified typeTAKE 1 TABLET BY MOUTH EVERY MORNING AND TAKE 1 TABLET BY MOUTH EVERY NIGHT AT BEDTIME 60 tablet 5Active estradiol (Estrace) 1 MG tablet Indications:Hormone replacement therapy,Post menopausal syndromeTake 1 mg daily- take 2 mg every other day. 135 tablet 5Active DULoxetine (Cymbalta) [address] capsule Indications:Other specified anxiety disorders,Moderate episode of recurrent major depressive disorder (HCC)TAKE 2 CAPSULES BY MOUTH DAILY 60 capsule 5Active estradiol (Estrace) 0.5 MG tablet Take 0.5 mg by mouth Daily5Active tamsulosin (Flomax) 0.4 MG 24 hr capsule Take 0.4 mg by mouth DailyActive ondansetron (Zofran) 4 MG tablet Indications:NauseaTake 1 tablet (4 mg) by mouth every 8 (eight) hours if needed for nausea or vomiting 20 tablet tive loperamide (Imodium A-D) 2 MG tablet Take by mouth 4 (four) times a day as needed for diarrheaActive verapamil SR (Calan SR) 240 MG ER tablet Indications:Essential (primary) hypertensionTake 1 tablet (240 mg) by mouth in the morning and 1 tablet (240 mg) before bedtime. Do not crush or chew. 60 tablet /6Active ondansetron (Zofran) 4 MG tablet Take by mouth.Discontinued(Reorder) carvedilol (Coreg) 25 MG tablet Indications:Essential hypertension, benignTAKE ONE TABLET BY MOUTH TWICE A DAY 60 tablet /Discontinued(Ineffective) loperamide (Anti-Diarrheal) 2 MG tablet Take 2 mg by mouth 4 (four) times a day as needed for /22/2025 Discontinued(Med list cleanup) fluconazole (Diflucan) 150 MG tablet Indications:Vaginal candidiasisTake one tablet now, then take the second tablet 72 hours later 2 tablet Discontinued(Therapy completed) cholestyramine (Questran) 4 g packet Discontinued(Ineffective) Active Problems ProblemNoted DateDiagnosed DateGeneralized anxiety nskzegbn27/27/2025 Atherosclerosis of abdominal aorta07/28/2024 Overview (07/28/2024): incidental on CT abd Hepatic cbwrqtdeb70/27/2025 Overview (07/28/2024): detected on CT 2019 and 2023 Complex regional pain syndrome I, elaciyqyaqt51/23/2023Essential (primary) rcwbxuzrwnka00/23/2023astroesophageal reflux disease without esophagitis 10/23/2022IFG (impaired fasting glucose)10/23/20223132Zcdeinzn43/23/2023Mild episode of recurrent major depressive jsiwoaas12/23/2023Neurogenic thoracic outlet hoslazqx63/23/2023ost menopausal gflcxoqn02/23/2023ure hypercholesterolemia 10/23/2022ervical post-laminectomy bwzkshfo03/22/2018 Resolved Problems ProblemNoted DateDiagnosed DateResolved FropAerpaetws11 Fhpdrecgxmtyvt14 Overview (11/09/2022): RIGHT SHOULDER Colon, alijmwpazpfuta32/09/202304/ervical stenosis of spinal canal /ody mass index (BMI) of 32.0-32.9 in adult10/29/2022 11/30/2022 Overview (11/09/2022): Last Assessment & Plan: Condition: stable Educated patient on normal BMI range of 18.5 to 24.9 Advised to monitor nutrition to not exceed caloric needs, or as indicated by PCP in order to maintain a healthy weight and BMI. Advised toengage in aerobic physical activity, if indicated to be safe by PCP, to assist with maintaining a healthy weight and BMI. Advised to follow up with PCP to address nutrition as needed to assist with reaching or maintaining a healthy weight and BMI. Follow up in: six months Nicotine inkzbmabmk10 Overview (11/09/2022): Last Assessment & Plan: Condition: stable Follow up in: six months ADD (attention deficit disorder)nxiety disorder, yqlpubsdwau69/23/202304/Insulin hxoewjniqs86Metabolic gqrsbepg45Other chronic painOther obesity due to excess dyubqaiv29Reactive airway bwtmzrq1310/23/2022 07/24/2024Urgency xxdnnhfdvavh52Seasonal awqkfdkov09/21/2022 07/24/20246904Affvbbalnpzuo57S/P shoulder dnzwgef5107/23/2017 11/30/2022Neuropathic painMyofascial pain07/23/2017 07/24/2024 Encounters DateTypeDepartmentCare ZbfhTfllawrzoan18/06/2025Community Orders [facility] [address] [place] [address] Kristin Rooney MD Kidney stone (Primary Dx)01/31/2025 7:30 AM EDTAncillary Procedure [facility] [address] [place] [address] Renal stone01/29/2025ommunity Orders [facility] [address] [place] [address] Kristin Rooney MD Renal stone (Primary Dx)01/23/2025 7:50 AM EDTAncillary Procedure [facility] [address] [place] [address] Kidney stone01/22/2025 9:00 AM EDTOffice Visit [facility] [address] [address] Chance Melton DO Functional diarrhea (Primary Dx); Essential (primary) hypertension; Nausea; Attention or concentration deficit; Complex regional pain syndrome type 1 of right upper extremity; Generalized anxiety disorder; IFG (impaired fasting glucose)01/22/2025ommunity Orders [facility] [address] [place] [address] Osman Hernandez MD Kidney stone (Primary Dx)01/22/2025amboo flowsheet [facility] [address] [place] [address] Chance Melton DO 01/22/20251564Yrpeyo11/19/5325Zyvgib60/14/2025 7:20 AM EDTAncillary Procedure [facility] [address] [place] [address] Renal stone5Community Orders [facility] [address] [place] [address] Amanda Sheets PA Renal stone (Primary Dx)01/03/2025 6:40 AM EDTAncillary Procedure [facility] [address] [place] [address] Kidney stone01/01/2025 8:55 AM EDTAncillary Procedure [facility] [address] [place] [address] Kidney stone5Community Orders [facility] [address] [place] [address] Adam Mahoney MD Kidney stone (Primary Dx)12/26/2024 7:15 AM EDTAncillary Procedure [facility] [address] [place] [address] Calculus, oddsbp895Community Orders [facility] [address] [place] [address] Lan Dixon MD Calculus, kidney (Primary Dx)from Last 3 Months Immunizations ImmunizationAdministration DatesNext DueJanssen QPXZ-SrF-017/14/2021Pfizer Purple Cap SARS-CoV-2 Xwnfujgjpfk14/29/2021 Family History Medical HistoryRelationNameCommentsArthritisFatherNorman Welser sr.Heart disease FatherNorman Welser sr.Heart failureFatherNorman Welser sr.HyperlipidemiaFather Kennedy Welser sr.HypertensionFatherNorman Joseser sr.Kidney failureFatherNorman Joseser sr.EndometriosisMotherJudith WelserHypertensionMotherJudith WelserMental illnessMotherJudith WelserLung cancerPaternal GrandfatherMelanomaNeg HxRelation BcmyDrdjanYczltkntMabrboj4RbzqbeOmqfbd Welser sr.DeceasedMotherJudith Joseser AlivePaternal Grandfather Social History Tobacco UseTypesPacks/DayYears UsedDateSmoking Tobacco: Every DayCigarettes0.5 36.9Started: 04/03/1988Smokeless Tobacco: Never Tobacco Cessation:Ready to Q uit: Not Asked; Counseling Given: Not Answered Alcohol UseStandard Drinks/WeekCommentsYes0 (1 standard drink = 0.6 oz pure alcohol)caffeine: coffee 3-4 cups a dayAUDIT-CAnswerDate RecordedQ1: How often do you have a drink containing alcohol?Never09/25/2024Q2: How many drinks containing alcohol do you have on a typical day when you are drinking?Patient does not drink09/25/2024Q3: How often do you have six or more drinks on one occasion?Never09/25/2024PHQ-2AnswerDate RecordedPatient Health Questionnaire-2 Mqxkr396CommentsNoSex and Gender InformationValueDate Recorded Sex Assigned at BirthNot on fileLegal SfgIgiilb82/15/2023 7:09 PM EDTGender IdentityNot on fileSexual OrientationNot on fileOccupationIndustryJob Start Date Job End DatedisabledNot on fileNot on fileNot on file Last Filed Vital Signs Vital SignReadingTime TakenCommentsBlood Txzyiknh262/9010 8:46 AM EDT Tvoqw7577/22/2025 8:46 AM KGYRbauexoldsw11.6 ??C (97.8 ??F)01/02/2023 3:02 PM EDTRespiratory Rate--Oxygen Kkplzvsnxz68%01/22/2025 8:46 AM EDTInhaled Oxygen Concentration--Xweeli83.7 kg (189 lb)01/22/2025 8:46 AM WWPMruhyj235 cm (5' 3 ) 01/22/2025 8:46 AM EDTBody Mass Index33.4801/22/2025 8:46 AM EDT Plan of Treatment DateTypeDepartmentCare Team (Latest Contact Info)Acibdzvrlqr22/20/2025 9:30 AM ESTOffice Visit [facility] [address] [place] [address] Caro Elias NP [address] [place] [address] 09/30/2025 11:00 AM EDTOffice Visit [facility]ICCosta [facility] [address] [place] [address] Neville Hyman DO [address] [place] [address] Health MaintenanceDue DateLast DoneCommentsPneumococcal Vaccine: Pediatrics (0 to 5 Years) and At-Risk Patients (6 to 64 Years) (1 of 2 - PCV)1981COVID- 19 Vaccine ( season)51, 03/31/2021, 10/15/2020, Additional history idtoknKekzojzlw26/18/85534209/18/2024, 11/02/2022, 11/02/2022, Additional history existsInfluenza Vaccine (#1)09/30/2025Postponed from 12/02/2024 (Patient Refused)Pap YlqtlPahltifzvnik08/09/2023Colonoscopy Rmeilifvhdlw74/28/2024, 11/29/2023, 05/29/2023, Additional history exists Colorectal Cancer ScreeningDiscontinuedCervical Cancer ScreeningDiscontinued HPV/CcoybgBhjvubgfvuic14/25/2025CT ColonographyDiscontinuedFIT-DNADiscontinued FITDiscontinuedFOBTDiscontinuedSigmoidoscopyDiscontinued Procedures Procedure NamePriorityDate/TimeAssociated DiagnosisCommentsXR ABDOMEN 1 VIEW Qwxqsfl2201/31/2025 7:25 AM EDT Renal stone XR ABDOMEN 1 SAIKXuqbqgf28/23/2025 7:47 AM EDT Kidney stone XR ABDOMEN 1 ITKGTfgxmel67/14/2025 7:17 AM EDT Renal stone XR ABDOMEN 1 YFIATcectwg95/03/2025 6:36 AM EDT Kidney stone XR ABDOMEN 1 NFWWChsapgb06/25/2025 7:10 AM EDT Calculus, kidney IGP,RFXAPTIMA HPV ALL,,88Utvcpdn49/25/2025 12:00 AM EDT Encounter for Papanicolaou smear of vagina BI MAMMOGRAM SCREENING TOMOSYNTHESIS JPRDYFYWKCafqjqr37/18/2025 1:32 PM EDT Screening mammogram for breast cancer THINPREP TIS FTYFzqmenq07/09/2023 10:45 AM EDT Encounter for gynecological examination without abnormal finding Encounter for Papanicolaou smear of vagina NNNDKPCGQWJEfbhqpd68/15/2015 12:00 PM EDT from Last 3 Months or Most Recently Relevant to Health Maintenance Results * XR abdomen 1 view (01/31/2025 7:25 AM EDT) Only the most recent of5 resultswithin the time period is included. Anatomical RegionLateralityModalityAbdomenRadiographic ImagingSpecimen (Source) Anatomical Location / LateralityCollection Method / VolumeCollection Time Received Time02/03/2025 12:43 PM EST Impressions 02/03/2025 2:26 [...] BY: Sergei Macedo MD Authorizing ProviderResult TypeResult StatusJaber Toribio COLBERTIMG XR PROCEDURES Final Result * IGP,rfxAptima HPV all,16/18,45 (09/25/2024 12:00 AM EDT)ComponentValueRef RangeTest MethodAnalysis TimePerformed AtPathologist SignatureDiagnosis: CommentLABCORPComment:NEGATIVE FOR INTRAEPITHELIAL LESION OR MALIGNANCY. Specimen Adequacy:CommentLABCORPComment:Satisfactory for evaluation. No endocervical component is identified.Clinician Provided ICD10:CommentLABCORP Comment:Z12.72Performed By:CommentLABCORPComment:Meenu Morales, Crime Scene Evidence Technician ([facility]) Cyto Comments.LABCORPNote:CommentLABCORPComment: The Pap smear is a screening test designed to aid in the detection of premalignant and malignant conditions of the uterine cervix. ??It is not a diagnostic procedure and should not be used as the sole means of detecting cervical cancer. ??Both false-positive and false-negative reports do occur. Test Methodology:CommentLABCORPComment: This liquid based ThinPrep(R) pap test was screened with the use of an image guided system. .CommentLABCORPComment: The HPV DNA reflex criteria were not met with this specimen result therefore, no HPV testing was performed. Specimen (Source)Anatomical Location / LateralityCollection Method / Volume Collection TimeReceived TimeSwabVaginal structure / Wytatnj16/ Comment:Vagina Print requisit Narrative [facility] - 09/27/2024 3:07 PM EDT Performed at: 01 - [facility] [address] [place] [address], [place], [place] ??[id number] [employer]: Stanley Avendaño MD, Phone: ??[phone] Performed at: ??02 - [address] ??[id number] [employer]: Esperanza Heard MD, Phone: ??[phone] Specimen Comment: [id number] Specimen Comment: No. of containers..01 ThinPrep Vial Authorizing ProviderResult TypeResult StatusWillpedro MYRICK CYTOLOGY ORDERABLESFinal ResultPerforming OrganizationAddressCity/State/ZIP CodePhone Number [facility] * Bilateral screening mammogram with tomosynthesis (09/18/2024 1:32 PM EDT) Anatomical RegionLateralityModalityBreastBilateralMammographySpecimen (Source) Anatomical Location / LateralityCollection Method / VolumeCollection Time Received Time09/23/2024 11:12 AM EDT Impressions 09/23/2024 11:21 AM EDT Impression: No specific evidence of malignancy seen in either breast. BIRADS 2 - Benign Findings DENSITY: There are scattered areas of fibroglandular density. FOLLOW-UP: Routine Screening Mammogram ELECTRONICALLY SIGNED BY: Rachid Burris M.D. Narrative 09/23/2024 11:21 AM EDT Examination: BI MAMMOGRAM SCREENING TOMOSYNTHESIS BILATERAL Clinical History: annual screen Technique: Screening digital mammography study of both breasts was performed with 2-D and 3-D tomosynthesis imaging. Study was compared to the prior exam dated 09/28/2020. Findings: There is no evidence of interval dominant spiculated mass, grouped microcalcifications, or skin thickening which would be suggestive of malignancy. ?? A few benign-appearing calcifications are seen bilaterally. A few small benign- appearing asymmetricdensities on the right likely related to focal fibroglandular tissue. Axillary lymph nodes including partially visualized lymph node noted on the left which appear grossly unremarkable. Procedure Note Rachid Burris MD - 09/23/2024 Examination: BI MAMMOGRAM SCREENING TOMOSYNTHESIS BILATERAL Clinical History: annual screen Technique: Screening digital mammography study of both breasts wasperformed with 2-D and 3-D tomosynthesis imaging. Study was compared tothe prior exam dated 09/28/2020. Findings: There is no evidence of interval dominant spiculated mass,grouped microcalcifications, or skin thickening which would be suggestiveof malignancy. A few benign-appearing calcifications are seen bilaterally. A few smallbenign- appearing asymmetric densities on the right likely related to focal fibroglandular tissue. Axillary lymph nodes including partially visualizedlymph node noted on the left which appear grossly unremarkable. IMPRESSION: Impression: No specific evidence of malignancy seen in either breast. BIRADS 2 - Benign Findings DENSITY: There are scattered areas of fibroglandular density. FOLLOW-UP: Routine Screening Mammogram ELECTRONICALLY SIGNED BY: Rachid Burris M.D. Authorizing ProviderResult TypeResult StatusAmy Warchol NPIMG BI PROCEDURESFinal Result * (ABNORMAL) THINPREP TIS PAP (11/09/2022 10:45 AM EDT)ComponentValueRef Range Test MethodAnalysis TimePerformed AtPathologist SignatureCLINICAL INFORMATION QUESTComment:HRTLMPQUESTComment:EDUARDO BSO 2003PREV. PAPQUESTComment:NEGPREV. BX QUESTComment:NONE GIVENSOURCEQUESTComment:None givenSTATEMENT OF ADEQUACYQUEST Comment:SATISFACTORY FOR EVALUATIONGENERAL CATEGORIZATION(A)QUESTComment: Cytology Results: Epithelial Cell AbnormalityINTERPRETATION/RESULT(A)QUEST Comment: Atypical Squamous Cells of Undetermined Significance (ASC-US) INFECTIONQUESTComment: Fungal organisms morphologically consistent with Sabiha spp. COMMENTQUESTComment: This Pap test has been evaluated with computer assisted technology. Suggest clinical correlation and follow-up as clinically appropriate CYTOTECHNOLOGISTQUESTComment: CMB, CT(ASCP) CT Screening Location: [place] [address] PATHOLOGISTQUESTComment: Parminder Montejo MD Board Certified in Anatomic Pathology and Cytopathology (electronic signature) For questions regarding this report call Anatomic Pathology at [phone] Parminder Montejo MD, [employer] [place], [place] (ALWAYS MESSAGE)QUESTComment: EXPLANATORY NOTE: The Pap is a screening test for cervical cancer. It is not a diagnostic test and is subject to false negative and false positive results. It is most reliable when a satisfactory sample, regularly obtained, is submitted with relevant clinical findings and history, and when the Pap result is evaluated along with historic and current clinical information. Specimen (Source)Anatomical Location / LateralityCollection Method / Volume Collection TimeReceived PxqwBmvk86/09/2023 10:45 AM EDT08/01/2023 6:17 AM EDT Narrative Resulting Agency Comment Performing Organization Information ?Site ID: [id number] ?Name: [facility] ?Address: [facility], [place] [address] ?Director: Khadra Negro Authorizing ProviderResult TypeResult StatusWillpedro Hyman DOLAB BLOOD ORDERABLESFinal ResultPerforming OrganizationAddressCity/State/ZIP CodePhone Number QUEST * Colonoscopy (08/15/2014 12:00 PM EDT)Anatomical RegionLateralityModality EndoscopySpecimen (Source)Anatomical Location / LateralityCollection Method / VolumeCollection TimeReceived Time08/15/2014 12:00 PM EDT Narrative 08/15/2014 12:00 PM EDT PERFORMED AT [facility] LOCATION:[id number] [facility] Procedure Note CONVERSION, GENERIC - 08/18/2022 PERFORMED AT [facility] LOCATION:[id number] [facility] Authorizing ProviderResult TypeResult Mikaela Melton DOENDOSCOPY PROCEDURE ORDERABLESFinal Result from Last 3 Months or Most Recently Relevant to Health Maintenance Insurance Care Teams Team MemberRelationshipSpecialtyStart DateEnd Date Chance Melton DO [address] [place], [place] [id number] PCP - GeneralInternal Medicine10/19/22 Neville Hyman DO [address] [place] [address] Referring PhysicianObstetrics and Rzjgtxtyai80/7/25 Adam Mahoney MD [address] [address] Referring PahldtgzbXgdoyds35/22/25 Lan Dixon MD Referring JllcfivgdZxgyhsn65/22/25 Mauricio Chun MD [address] [place] [address] Referring TksxebnruFrennbehsronwtgt86/22/25
--- NOTE | 2025-02-11 13:57 | ED.GENADUL1 ---
HPI HPI - General Adult General Chief complaint: Abdominal Pain Stated complaint: L SIDED FLANK PAIN Time Seen by Provider: 02/11/25 13:33 Source: patient Mode of arrival: walk-in History of Present Illness HPI narrative: Patient is a 64-year-old female that presents with complaints of left-sided flank pain that is radiating to her left side of her abdomen. She does have a history of 3 left-sided kidney stones and has been seeing a urologist with [facility] in [place]. She did have a stent placed 2 months ago and lithotripsy 2 weeks ago. She has been taking Zofran and oxycodone as needed for nausea and pain. Her pain increased greatly this morning and has been uncontrolled with her oxycodone and she did start to vomit and has vomited twice today. She denies any fever, night sweats, or chills. She admits to dysuria, urinary retention, urinary frequency and urgency. Related Data Allergies Allergy/AdvReac Type Severity Reaction Status Date / Time cyclobenzaprine (From Allergy Severe Rash Verified 02/11/25 12:57 Flexeril) Opioid HPI Opioid Management Most Recent Opioid Data: Last Pain Scale 3 Today, 15:58 Last MAR Pain Assessment Today, 15:58 Review of Systems ROS Status of ROS 10 or more systems reviewed and unremarkable except as noted in history and below PFSH PFSH Social History Little interest or pleasure in doing things: not at all Feeling down, depressed, or hopeless: not at all Exam Narrative Exam Narrative: General: No distress, age-appropriate Skin: Warm, dry, no pallor. No rash. Head: Normocephalic, atraumatic. Neck: Supple, non-tender. Eye: Pupils are equal, round and EOMI. No scleral icterus. Ears, Nose, Mouth, and Throat: No nasal mucosal hypertrophy. Oral mucosa is moist, no posterior oropharynx erythema, uvula is mid-line Cardiovascular: Regular Rate and Rhythm without murmur, gallop or rub. Respiratory: No accessory muscle use or respiratory distress. Lungs are clear to auscultation, no wheezing, rales or rhonchi Chest Wall: no tenderness Back: No midline thoracic or lumbar vertebral tenderness. L CVA tenderness. Musculoskeletal: Full ROM of all extremities, no calf or popliteal tenderness GI: Abdomen is soft, non-distended, diffusely tender to palpation LUQ/LLQ. No masses appreciated. No rebound, guarding, or rigidity noted. Neurological: A&O x4. No cranial nerve dysfunction observed. No truncal ataxia. Moves all extremities. Sensation intact. Psychiatric: Cooperative and interactive. Normal mood and affect. Constitutional Vital Signs, click to edit/add: Last Vital Signs Temp 98.2 F 02/11/25 12:52 Pulse 89 02/11/25 12:52 Resp 18 02/11/25 12:52 BP 157/75 H 02/11/25 14:44 Pulse Ox 96 02/11/25 15:20 O2 Del Method Room Air 02/11/25 12:52 Course Vital Signs Vital signs: Vital Signs Temperature 98.2 F 02/11/25 12:52 Pulse Rate 89 02/11/25 12:52 Respiratory Rate 18 02/11/25 12:52 Blood Pressure 163/88 H 02/11/25 12:52 Pulse Oximetry 98 02/11/25 12:52 Oxygen Delivery Method Room Air 02/11/25 12:52 Temperature 98.2 F 02/11/25 12:52 Pulse Rate 89 02/11/25 12:52 Respiratory Rate 18 02/11/25 12:52 Blood Pressure 157/75 H 02/11/25 14:44 Pulse Oximetry 96 02/11/25 15:20 Oxygen Delivery Method Room Air 02/11/25 12:52 Medical Decision Making MDM Narrative Medical decision making narrative: This is a 64-year-old female that presents to the ED with left flank pain, nausea, and vomiting that worsened this a.m. and was not controlled with her home meds Zofran and oxycodone 5 mg. She has been seeing a urologist at [facility] and had a left stent placed 2 months ago, she also had lithotripsy 2 weeks ago for 3 known kidney stones. She has also been having perceived urinary retention, dysuria, frequency, and urgency. On arrival patient appears uncomfortable, BP is hypertensive at 157/75, pulse is 89, afebrile at 98.2 ?F. UA, CBC, CMP, CT abdomen/pelvis without ordered. IV placed and a 30 mg IV Toradol, 1 mg Dilaudid, and 4 mg IV Zofran given. Pain improved from 01/10 to 07/11. Labs CBC: WBC 12.7, no left shift, possibly reactive to pain CMP: Creatinine 1.12/BUN 26-no baseline to compare to, alk phos and ALT mildly elevated. UA: Proteinuria, large occult blood, small leukocyte esterase, 20?50 urine RBCs, 2?5 urine WBCs, urine crystals seen, trace urine bacteria, urine casts seen, urine mucus trace- Hematuria consistent with nephrolithiasis; mild pyuria without strong evidence of infection. CT Abdomen/ Pelvis: Left-sided hydronephrosis is noted. There is a left ureteral stent. The proximal aspect of the stent appears to extend through the renal pelvis into the perirenal fat.Radiodense structures are noted along the left ureter adjacent to the ureteral stent suggesting ureteral stones. Malpositioned left ureteral stent with associated ureteral calculi and hydronephrosis. I discussed results with patient and her significant other at bedside. I did offer the option for admission here for pain control and urology consult here versus pain control at home and follow-up with her urologist for her scheduled appointment tomorrow. Patient would like to see her urologist tomorrow and discussed results. I did give her another 1 mg dose of IV Dilaudid. I also gave her 2 doses of 10 mg oxycodone that she can take every 6 hours as needed pain at home until she sees her urologist tomorrow. Patient's pain has been controlled here, vitals are hemodynamically stable, she is nontoxic-appearing, and stable for discharge with very close follow-up with urology tomorrow. We discussed return to ED precautions to include uncontrolled pain or any new or worsening symptoms. Patient was discharged in stable condition with follow-up with urology tomorrow. Differential Diagnosis Differential Diagnosis: Obstructing ureteral stone, stent obstruction, pyelonephritis, UTI Lab Data Lab results reviewed: Yes I reviewed the patient's lab results Labs: Lab Results 02/11/25 02/11/25 Range/Units 13:43 14:30 WBC 12.7 H (4.0-11.0) 10^3/uL RBC 4.70 (4.20-5.40) 10^6/uL Hgb 15.4 (12.0-16.0) g/dL Hct 44.8 (36.0-48.0) % MCV 95.3 (81.0-99.0) fL MCH 32.8 (26.7-34.0) pg MCHC 34.4 (29.9-35.2) g/dL RDW 12.7 (11.0-15.0) % Plt Count 263 (150-450) 10^3/uL MPV 9.7 (9.5-13.5) fL Neut % (Auto) 70.3 (43.0-75.0) % Lymph % (Auto) 17.7 L (20.5-60.0) % [place] % (Auto) 10.7 (1.7-12.0) % Eos % (Auto) 0.8 L (0.9-7.0) % Baso % (Auto) 0.2 (0.2-2.0) % Neut # (Auto) 8.9 H (1.4-6.5) 10^3/uL Lymph # (Auto) 2.3 (1.2-3.8) 10^3/uL [place] # (Auto) 1.4 H (0.3-0.8) 10^3/uL Eos # (Auto) 0.1 (0.0-0.7) 10^3/uL Baso # (Auto) 0.0 (0.0-0.1) 10^3/uL Abs Immat Gran (auto) 0.04 H (0.00-0.03) 10^3/uL Imm/Tot Granulo (auto) 0.3 (0.0-0.5) % Sodium 139 (136-145) mmol/L Potassium 3.8 (3.5-5.1) mmol/L Chloride 106 (98-107) mmol/L Carbon Dioxide 24.6 (21.0-32.0) mmol/L Anion Gap 12.2 BUN 26.0 H (7.0-18.0) mg/dL Creatinine 1.12 H (0.55-1.02) mg/dL Est GFR ( Amer) 60 (>=60 mL/min/1.73m^2) Est GFR (Non-Af Amer) 49 L (>=60 mL/min/1.73m^2) BUN/Creatinine Ratio 23.2 Glucose 135 H (74-106) mg/dL Calcium 8.5 (8.5-10.1) mg/dL Total Bilirubin 0.6 (0.2-1.0) mg/dL AST 33 (15-37) U/L ALT 95 H (14-59) U/L Alkaline Phosphatase 127 H (46-116) U/L Total Protein 6.6 (6.4-8.2) g/dL Albumin 3.2 L (3.4-5.0) g/dL Globulin 3.4 g/dL Albumin/Globulin Ratio 0.9 Urine Color Yellow (YELLOW) Urine Clarity Sl cloudy (CLEAR) Urine pH 6.0 (5.0-9.0) Ur Specific [place] >=1.030 A (1.005-1.025) Urine Protein 100 A (NEG/TRACE) mg/dL Urine Glucose (UA) Negative (NEGATIVE) mg/dL Urine Ketones Negative (NEGATIVE) mg/dL Urine Occult Blood Large A (NEGATIVE) Urine Nitrite Negative (NEGATIVE) Urine Bilirubin Negative (NEGATIVE) Urine Urobilinogen 0.2 (0.2-1.0) EU/dL Ur Leukocyte Esterase Small A (NEGATIVE) Urine RBC 20-50 A (0-2) #/HPF Urine WBC 2-5 A (NONE SEEN) #/HPF Ur Squamous Epith Cells Rare (NONE/RARE) #/LPF Urine Crystals Seen A (None Seen) #/HPF Uric Acid Crystals Moderate Urine Bacteria Trace A (NONE SEEN) #/HPF Urine Casts Seen A (NONE SEEN) #/LPF Urine Mucus Trace A (NONE SEEN) Ur Culture Indicated? Yes-[facility] [place] Imaging Data CT scan - abdomen: Attestation: I have reviewed the pertinent imaging results. Radiologist's impression: ITS Impressions Abdomen/Pelvis CT 02/11/25 13:54 IMPRESSION: Left-sided hydronephrosis is noted. There is a left ureteral stent. The proximal aspect of the stent appears to extend through the renal pelvis into the perirenal fat. Radiodense structures are noted along the left ureter adjacent to the ureteral stent suggesting ureteral stones. There is a ventral wall hernia containing intraperitoneal fat and nonobstructed loops of small bowel in the periumbilical region. Hepatic steatosis. Impression dictated by: Bj Mcclain M.D. 02/11/2025 2:34 PM Dictation Location: [place] [id number] Electronically authenticated by: [id number] Y Date: 02/11/2025 14:34 Discharge Plan Discharge Chief Complaint: Abdominal Pain Clinical Impression: Left nephrolithiasis Patient Disposition: Home, Self-Care Time of Disposition Decision: 15:32 Condition: Good Mode of Transportation: Private Vehicle Print Language: Indonesian Instructions: Kidney Stones (ED), Hydronephrosis (ED) Additional Instructions: Follow up with your Urologist as planned tomorrow Referrals: XAVIER HAYES [Primary Care Provider, Internal Medicine] - 1 week Discharge Date/Time: 02/11/25 16:11
[2025-02-11 14:08] LABS: Glucose Urine UA NEGATIVE (NEGATIVE)
[2025-02-11] MEDS: KETOROLAC TROMETHAMINE 30 MG/ML VIAL IVP (14:25)
[2025-02-11] MEDS: HYDROMORPHONE HCL 1 MG/ML CARTRIDGE IV ×2 (14:28→15:58)
[2025-02-11 14:41] LABS: Cast Seen? SEEN #/LPF (NONE SEEN); Crystals Seen? Seen #/HPF (None Seen)
[2025-02-11 14:42] LABS: Urine Culture Indicated YES-FRMC
[2025-02-11 14:44] VITALS: BP 157/75; O2SAT 95
[2025-02-11 14:46] LABS: Hematocrit 44.8 % (36.0-48.0); Hemoglobin 15.4 g/dL (12.0-16.0); Immature Granulocytes Abs Auto 0.04 10^3/uL (0.00-0.03); Immature Granulocytes Pct Auto 0.3 % (0.0-0.5); Lymphocytes Absolute Auto 2.3 10^3/uL (1.2-3.8); Mean Corpuscular HGB Conc 34.4 g/dL (29.9-35.2); Mean Corpuscular Hemoglobin 32.8 pg (26.7-34.0); Mean Corpuscular Volume 95.3 fL (81.0-99.0); Platelet Count 263 10^3/uL (150-450); Red Blood Count 4.70 10^6/uL (4.20-5.40); White Blood Count 12.7 10^3/uL (4.0-11.0)
[2025-02-11 14:50] VITALS: O2SAT 93
[2025-02-11 15:00] VITALS: O2SAT 91
[2025-02-11 15:01] LABS: Alanine Aminotransferase 95 U/L (14-59); Albumin Globulin Ratio 0.9; Albumin Level 3.2 g/dL (3.4-5.0); Alkaline Phosphatase 127 U/L (46-116); Anion Gap 12.2; Aspartate Amino Transferase 33 U/L (15-37); Blood Urea Nitrogen 26.0 mg/dL (7.0-18.0); Calcium 8.5 mg/dL (8.5-10.1); Carbon Dioxide 24.6 mmol/L (21.0-32.0); Chloride 106 mmol/L (98-107); Estimated GFR (African America 60 (>=60 mL/min/1.73m^2); Estimated GFR (Non-African Ame 49 (>=60 mL/min/1.73m^2); Globulin 3.4 g/dL; Glucose 135 mg/dL (74-106); Potassium 3.8 mmol/L (3.5-5.1); Sodium 139 mmol/L (136-145); Total Protein 6.6 g/dL (6.4-8.2)
[2025-02-11 15:10] VITALS: O2SAT 93
[2025-02-11 15:20] VITALS: O2SAT 96
[2025-02-11] MEDS: OXYCODONE HCL 5 MG TABLET 10 MG PO ×2 (15:57→15:58)
== END 2025-02-11 16:11 | disposition home or self-care (01) ==
PROVIDERS: Physician Assistant; Emergency Provider Student in an Organized Health Care Education/Training Program; Family Provider Internal Medicine; PCP Internal Medicine
DX: N13.2 Hydronephrosis with renal and ureteral calculous obstruction (principal); Z87.442 Personal history of urinary calculi; Z96.0 Presence of urogenital implants
CPT/HCPCS: 36415; 74176; 80053; 81001; 85025; 87086; 87088; 87186; 96374; 96375; 96376; 99285; J1171; J1885; J2405